=== PATIENT | male | born 1995 | race African-American/Black ===

== ENCOUNTER 2017-01-26 20:15 | Emergency (ER) | payer OTHER ==
[~2017-01-26] VITALS: Ht 179.1 cm; Wt 79.2 kg
[2017-01-26 20:23] VITALS: TEMP 37.1; Ht 179.1 cm; Wt 79.2 kg
[2017-01-26 21:03] LABS: URINE APPEARANCE CLOUDY (CLEAR); URINE BILIRUBIN NEG (NEG); URINE COLOR YELLOW; URINE NITRITE NEG (NEG); URINE PH 6.5 (4.5-7.5); URINE SPECIFIC GRAVITY 1.026 (1.000-1.030); UROBILINOGEN NEG (NEG); ZZUR CULT IF INDIC CLEAN CATCH NO
[2017-01-26 21:04] LABS: MANUAL MICROSCOPIC REQUIRED? NO; REVIEW REQ? YES
--- NOTE | 2017-01-26 22:28 | DIAGNOSTIC IMAGING REPORT ---
(TESTICULAR) SCROTUM-CONT CLINICAL HISTORY: 21 years-old Male with Pt c/o testicular discomfort. Acute bilateral testicular discomfort. COMPARISON STUDY: None available TECHNIQUE: Real-time, grayscale, and color Doppler sonography of the testes and scrotum is performed. Images are reviewed in the transverse and longitudinal planes. FINDINGS: RIGHT HEMISCROTUM: The right testis measures 5.7 x 2.6 x 3.4 cm and the parenchyma appears unremarkable. No intratesticular mass is seen. Normal-appearing arterial inflow is present within the right testicle. Right epididymal head cyst measures 0.4 x 0.4 x 0.4 cm. No varicocele or hydrocele is identified. LEFT HEMISCROTUM: The left testis measures 4.9 x 2.3 x 3.3 cm and the parenchyma appears unremarkable. No intratesticular mass is seen. Normal-appearing arterial inflow is present within the left testicle. The left epididymal head appears normal. No varicocele or hydrocele is identified. IMPRESSION: 1. Normal sonographic appearance of the bilateral testicles without evidence of torsion or mass. 2. 0.4 cm right epididymal head cyst. The above report was generated using voice recognition software. It may contain grammatical, syntax or spelling errors. Electronically signed by: Alan Smith M.D. 01/26/2017 10:27 PM Dictated Date/Time: 01/26/2017 10:25 PM
[2017-01-26] MEDS ORDERED: AZITHROMYCIN 250 MG TAB PO STA (22:31)
[2017-01-26] MEDS ORDERED: CEFTRIAXONE SOD 350MG/ML 1 GM VIAL IM STA (22:31)
[2017-01-26] MEDS ORDERED: DOXYCYCLINE HYCLATE 100 MG CAP PO STA (22:31)
--- NOTE | 2017-01-26 22:38 | EMERGENCY ROOM VISIT NOTE ---
History Report prepared by José Miguel: Mary Pitts Under the Supervision of: Dr. Raphael Chavez M.D. First contact with patient: 20:39 Chief Complaint: TESTICULAR PAIN Stated Complaint: MILD TESTECULAR DISCOMFORT History of Present Illness The patient is a 21 year old male who presents to the Emergency Room with complaints of persistent left testicular pain starting 3-4 weeks ago. He describes the pain as a soreness. He had some sharp testicular pain at first. He denies any penile discharge. He has no other complaints. Source of History: patient Onset: 3-4 weeks ago Position: other (left testicle) Quality: sharp, other (soreness) Timing: other (persistent) Note: Pt denies penile discharge. Review of Systems See HPI for pertinent positives & negatives. A total of 10 systems reviewed and were otherwise negative. Past Medical & Surgical Medical Problems: (1) No chronic problems Family History No pertinent family history stated. Social History Smoking Status: Never Smoker Occupation Status: student Current/Historical Medications Scheduled Doxycycline Monohydrate (Monodox), 100 MG PO BID Allergies Coded Allergies: No Known Allergies (Unverified , 01/26/17) Physical Exam Vital Signs Date Time Temp Pulse Resp B/P (MAP) Pulse Ox O2 Delivery O2 Flow Rate FiO2 01/26/17 23:18 79 16 137/75 99 01/26/17 22:20 62 130/65 97 Room Air 01/26/17 20:23 37.1 78 18 124/62 98 Room Air Physical Exam GENERAL: Patient is a healthy-appearing well-nourished male HEAD: Normocephalic atraumatic EYES: Ocular movements intact pupils equal and react to light OROPHARYNX mucous membranes are moist no exudates present no erythema or edema present NECK: Supple no nuchal rigidity CHEST: Good equal expansion LUNGS: Clear and equal to auscultation CARDIAC: Normal S1 and S2 ABDOMEN: Soft nontender no guarding BACK: No CVA tenderness : Left testicle is slightly swollen. EXTREMITIES: No pain upon palpation normal muscle strength in all groups no clubbing cyanosis or edema NEURO: Patient is following commands and answering questions appropriately. Alert and oriented x3 Cranial Nerves 2-12 grossly intact Medical Decision & Procedures ER Provider Diagnostic Interpretation: Radiology results as stated below per my review and radiologist interpretation: (TESTICULAR) SCROTUM-CONT CLINICAL HISTORY: 21 years-old Male with Pt c/o testicular discomfort. Acute bilateral testicular discomfort. COMPARISON STUDY: None available TECHNIQUE: Real-time, grayscale, and color Doppler sonography of the testes and scrotum is performed. Images are reviewed in the transverse and longitudinal planes. FINDINGS: RIGHT HEMISCROTUM: The right testis measures 5.7 x 2.6 x 3.4 cm and the parenchyma appears unremarkable. No intratesticular mass is seen. Normal-appearing arterial inflow is present within the right testicle. Right epididymal head cyst measures 0.4 x 0.4 x 0.4 cm. No varicocele or hydrocele is identified. LEFT HEMISCROTUM: The left testis measures 4.9 x 2.3 x 3.3 cm and the parenchyma appears unremarkable. No intratesticular mass is seen. Normal-appearing arterial inflow is present within the left testicle. The left epididymal head appears normal. No varicocele or hydrocele is identified. IMPRESSION: 1. Normal sonographic appearance of the bilateral testicles without evidence of torsion or mass. 2. 0.4 cm right epididymal head cyst. The above report was generated using voice recognition software. It may contain grammatical, syntax or spelling errors. Electronically signed by: Alan Smith M.D. 01/26/2017 10:27 PM Dictated Date/Time: 01/26/2017 10:25 PM Laboratory Results Test 01/26/17 20:50 Urine Color YELLOW Urine Appearance CLOUDY (CLEAR) Urine pH 6.5 (4.5-7.5) Urine Specific [place] 1.026 (1.000-1.030) Urine Protein NEG (NEG) Urine Glucose (UA) NEG (NEG) Urine Ketones NEG (NEG) Urine Occult Blood NEG (NEG) Urine Nitrite NEG (NEG) Urine Bilirubin NEG (NEG) Urine Urobilinogen NEG (NEG) Urine Leukocyte Esterase TRACE (NEG) Urine WBC (Auto) 5-10 /hpf (0-5) Urine RBC (Auto) 0-4 /hpf (0-4) Urine Hyaline Casts (Auto) 1-5 /lpf (0-5) Urine Epithelial Cells (Auto) 5-10 /lpf (0-5) Urine Bacteria (Auto) NEG (NEG) Urine Crystals CALCIUM OXALATE (NONE Labs reviewed by ED physician. Medications Administered Medications (Trade) Dose Ordered Sig/Emmanuel Route Start Time Stop Time Status Last Admin Dose Admin Ceftriaxone Sodium (Rocephin Im) 250 mg NOW STAT IM 01/26/17 22:31 01/26/17 22:33 DC 01/26/17 22:46 250 MG Azithromycin (Zithromax Tab) 1,000 mg NOW STAT PO 01/26/17 22:31 01/26/17 22:33 DC 01/26/17 22:42 1,000 MG Doxycycline Hyclate (Vibramycin Cap) 100 mg ONE STAT PO 01/26/17 22:31 01/26/17 22:33 DC 01/26/17 22:43 100 MG ED Course 2100: Past medical records reviewed. The patient was evaluated in room B4B. A complete history and physical examination was performed. 2231: Doxycycline Hyclate 100 mg PO, Azithromycin 1000 mg PO, Rocephin Im 250 mg IM. 2240: Upon reexamination the patient is resting comfortably. I discussed results and treatment plan with the patient. He verbalizes agreement and understanding. The patient is ready for discharge. Medical Decision Differential diagnosis: orchitis, epididymitis, torsion. This is a 21-year-old male who presents emergency department complaining of left testicular pain that has been ongoing for the past 2 weeks. Based on the patient's complaint he was sent for an ultrasound. He has no evidence of torsion on physical examination and no evidence of torsion on ultrasound. The patient's ultrasound is actually fairly benign. However he does have a large amount of white blood cells in his urine. Based on this fact the patient was given Rocephin in the emergency department as well as azithromycin and will be started on doxycycline. The patient had a large number of questions based on his diagnosis. I tried to answer these to the best of my ability but stressed he needed to follow-up with urology as I would not have all of his answers as to why he is having discomfort Medication Reconcilliation Current Medication List: was personally reviewed by me Blood Pressure Screening Patient's blood pressure: Normal blood pressure Blood pressure disposition: Did not require urgent referral Impression Primary Impression: Testicular pain, left Scribe Attestation The scribe's documentation has been prepared under my direction and personally reviewed by me in its entirety. I confirm that the note above accurately reflects all work, treatment, procedures, and medical decision making performed by me. Departure Information Dispostion Home / Self-Care Prescriptions Doxycycline Monohydrate (Monodox) 100 Mg Cap 100 MG PO BID for 10 Days, #20 CAP Prov: Raphael Chavez MD 01/26/17 Referrals Brianna Ghotra MD Forms HOME CARE DOCUMENTATION FORM, IMPORTANT VISIT INFORMATION, WORK / SCHOOL INSTRUCTIONS Patient Instructions ED Testicular Pain [facility], My [facility] Additional Instructions Follow up with Dr Ghotra office for continue pain Culture results are usually available in approx 48 hours You have been examined and treated today on an emergency basis only. This is not a substitute for, or an effort to provide, complete comprehensive medical care. It is impossible to recognize and treat all injuries or illnesses in a single emergency department visit. It is therefore important that you follow up closely with [facility]. Call as soon as possible for an appointment. Thank you for your time and consideration. I look forward to speaking with you again soon. Please don't hesitate to call us if you have any questions.
[2017-01-26] MEDS ORDERED: DOXY100C76 PO (23:00)
[2017-01-26 23:18] VITALS: BP 137/75; PULSE 79; O2SAT 99
== END 2017-01-26 23:20 | disposition home or self-care (01) ==
LOC: C.EDB 20:17
DX: N50.812 Left testicular pain (principal)